=== PATIENT | female | born 1970 | race Two or more races ===

== ENCOUNTER 2022-02-15 11:00 | Inpatient (IN) | payer OTHER ==
[~2022-02-15] VITALS: Ht 165.1 cm; Wt 78.5 kg
[2022-02-15] MEDS ORDERED: CANDESARTAN CILE8 MG PO (12:06)
[2022-02-20] MEDS ORDERED: PEPCID AC20 MG PO (10:58)
[2022-02-20] MEDS ORDERED: HYOSCYAMINE0.125 M1 SL (10:58)
[2022-02-20] MEDS ORDERED: ULTRACET PO (10:59)
== END 2022-02-20 13:16 | disposition home or self-care (01) | DRG 331 ==
LOC: O/R 02-18 07:54 → SURH 02-18 09:15
PROVIDERS: ADMIT Surgery; ATTEND Surgery
PROC: 07BB4ZZ Excision of Mesenteric Lymphatic, Percutaneous Endoscopic Approach (ICD-10-PCS; 2022-02-18)
PROC: 0DTG4ZZ Resection of Left Large Intestine, Percutaneous Endoscopic Approach (ICD-10-PCS; principal; 2022-02-18 09:15)
DX: C18.6 Malignant neoplasm of descending colon (principal); Z20.822 Contact with and (suspected) exposure to COVID-19